=== PATIENT | female | born 1960 | race Caucasian/White ===

== ENCOUNTER 2022-01-27 09:40 | Inpatient (IN) ==
[2022-01-27] MEDS ORDERED: ALBUT/IPRATROP 3MG/0.5MG NEB 3 ML VIAL NEB STA (10:06)
[2022-01-27 10:20] LABS: Basophils # (auto) 0.07 K/uL (0-0.2); Basophils % (auto) 0.6 %; Eosinophils # (auto) 1.69 K/uL (0-0.5); Eosinophils % (auto) 13.6 %; Hematocrit (blood only) 42.6 % (37-47); Hemoglobin 14.8 g/dL (12.0-16.0); Immature Granulocytes # (auto) 0.02 K/uL (0.00-0.02); Immature Granulocytes % (auto) 0.2 %; Lymphocytes # (auto) 4.06 K/uL (1.2-3.4); Lymphocytes % (auto) 32.7 %; Mean Corpuscular Hemoglobin 34.3 pg (25-34); Mean Corpuscular Hgb Conc 34.7 g/dL (32-36); Mean Corpuscular Volume 98.6 fL (80-100); Mean Platelet Volume 8.9 fL (7.4-10.4); Monocytes # (auto) 0.76 K/uL (0.11-0.59); Monocytes % (auto) 6.1 %; Neutrophils # (auto) 5.83 K/uL (1.4-6.5); Neutrophils % (auto) 46.8 %; Platelet Count 197 K/uL (130-400); RDW Coefficient of Variation 12.9 % (11.5-14.5); RDW Standard Deviation 46.6 fL (36.4-46.3); Red Blood Count 4.32 M/uL (4.2-5.4); White Blood Count 12.43 K/uL (4.8-10.8)
[2022-01-27 10:30] LABS: Partial Thromboplastin Time 26.5 Seconds (21.0-31.0); Prothrombin Time 10.5 Seconds (9.0-12.0)
--- NOTE | 2022-01-27 10:31 | XRay Report ---
XR chest 1V portable CLINICAL HISTORY: Dyspnea. COMPARISON STUDY: No previous studies for comparison. TECHNIQUE: 1 view of the chest FINDINGS: Single frontal view of the chest demonstrates the cardiomediastinal silhouette to be within normal li mits. There is a decreased inspiratory effort with elevation of the hemidiaphragms and crowding of th e bronchovascular markings at the lung bases and centrally. The lungs are clear of alveolar opacities . There is no evidence for pleural effusion. There is no evidence for vascular congestion. There is n o acute osseous pathology. The patient is status post internal fixation of the right clavicle. IMPRESSION: 1. . There is a decreased inspiratory effort with otherwise no acute chest disease. ACT 112: Negative or not required by law. Electronically signed by: Gary Gardner M.D. 01/27/2022 10:30 AM
[2022-01-27 11:00] LABS: Albumin Globulin Ratio 1.1 (0.9-2); Albumin Level 3.9 gm/dl (3.4-5.0); BUN Creatinine Ratio 18.9 (10-20); Bilirubin,Total 0.4 mg/dl (0.2-1.0); Calcium 9.6 mg/dl (8.5-10.1); Creatinine Clr Calc Pharmacy 86.2 ml/min; Est GFR (African American) 99.9 ml/min; Est GFR (Non-African American) 86.2 ml/min; Globulin 3.5 gm/dl (2.5-4.0); Potassium 4.1 mmol/L (3.5-5.1); Total Protein 7.4 gm/dl (6.0-8.3)
[2022-01-27 11:14] LABS: Influenza A virus by PCR Negative (Neg); Influenza B virus by PCR Negative (Neg); RSV by PCR Negative (Neg); SARS CoV2 RNA(COVID-19) InHosp NEGATIVE (Negative)
[2022-01-27] MEDS ORDERED: OPTIRAY 320 125ml IV ONE (11:14)
--- NOTE | 2022-01-27 11:24 | CT Scan Report ---
CT angio chest PE protocol CLINICAL HISTORY: Hypoxia . Dyspnea. COMPARISON STUDY: Portable chest from 01/27/2022 CT DOSE: 635.93 mGy.cm TECHNIQUE: CT Angio of the chest was performed.followed by image post processing with coronal, and s agittal MIP reformats. Contrast Volume: Optiray 320, 120 ml FINDINGS: Vasculature: There is homogeneous perfusion of the pulmonary vasculature bilaterally. No intraluminal filling defects or evidence for pulmonary embolus is seen. Airway: The airway is clear. No endobronchial lesion is identified. Lungs: Mild to moderate centrilobular emphysematous changes are present involving both upper lobes, r ight greater than left. There is crowding of the bronchovascular markings at the lung bases. The lung s are otherwise clear of acute alveolar opacities, air bronchograms or pulmonary nodules. Pleura: There is no evidence for pleural effusion. There is no evidence for pneumothorax. Mediastinum: There is no evidence for pathologic adenopathy. The heart size is within normal limits. There is mild coronary artery calcification present. The thoracic aorta is within normal limits. Ther e is no evidence for pericardial effusion. Upper abdomen:The adrenal glands are normal bilaterally. Osseous structures: There is no acute osseous pathology. Impression: 1. No CTA evidence for pulmonary embolus. 2. Mild to moderate centrilobular emphysematous changes of the upper lobes bilaterally, right greater than left. 3. Crowding of the bronchovascular markings at the lung bases with otherwise no acute chest disease. ACT 112: Negative or not required by law. Electronically signed by: Gary Gardner M.D. 01/27/2022 11:21 AM
[2022-01-27] MEDS ORDERED: methylPREDNISolone 125 MG/2 ML VIAL IV STA (11:51)
--- NOTE | 2022-01-27 12:06 | History & Physical Report ---
Date of Service January 27, 2022 Assessment & Plan (1) COPD exacerbation: Plan: - Admit to med tele - Solumedrol 60 mg IV BID - Doxycycline 100 mg BID - DuoNebs ATC and PRN - Mucinex for chest congestion - AM labs - Supplemental oxygen - titrate to a goal pulseox of 88-92% (2) Chronic pain syndrome: (3) Hypertension: (4) Dyslipidemia: (5) Fibromyalgia: (6) Malignant neoplasm of upper-outer quadrant of right breast in female, estrogen receptor negative: Plan: In remission - follows with hem/onc every 3 months (7) Tobacco use: Plan: Nicotine patch (8) Prediabetes: Plan: Last A1c in April 2021 - 6.3 Check A1c with AM labs Plan: Continue other home medications as appropriate Pt seen and reviewed with collaborating physician, Dr. Sam. Plan of care discussed and as outlined above. Code Status: Full Code DVT Prophylaxis: Larissa Suh PA-C History of Present Illness Chief Complaint: Low oxygen level, cough Primary Care Provider: Zheng Don MD This is a 61 y/o female with a PMH of panlobular emphysema, breast cancer s/p partial mastectomy and chemo (currently in remission), prior NE, HTN, dyslipidemia, chronic pain syndrome, fibromyalgia, prediabetics, and current tobacco use who presents to the ED with hypoxia, being referred from her PCP office. She reports ongoing issues with COPD since last fall, having completed two courses of prednisone and doxycycline in late 2020, course of Biaxin in October. Nagging cough since then but increasing cough for the past three days. Associated chest tightness. Wheezing started two days ago. Has been using nebs without relief so made appt with PCP today - found to be hypoxic so referred to the ED for evaluation. Cough mostly non-productive until the past 24 hours - minimally productive of white-yellow mucus since then. No hemoptysis. May cough to the point of having trouble breathing but no FARIAS or SOB otherwise. Associated wheezing for past two days. Chest feels very tight. No fevers, chills. At baseline uses Breo once daily and albuterol twice a day. No RIVERS, dizziness, palpitations, N/V. Chest only hurts with coughing - no pain with deep breathing. No known sick contacts. Does not follow with pulm for COPD. Current smoker (1 PPD) so would like a nicotine patch while admitted. Allergies Allergy/AdvReac Type Severity Reaction Status Date / Time oxycodone Allergy Mild Verified 01/27/22 10:48 baclofen AdvReac Mild Verified 01/27/22 10:48 CODEINE AdvReac Unknown ITCH Uncoded 01/27/22 10:48 Home Medications Medication Instructions Recorded Confirmed Type atorvastatin 20 mg tablet 20 mg PO DAILY 04/29/21 01/27/22 History betamethasone dipropionate 0.05 % 1 applic TOPICAL BID PRN 04/29/21 01/27/22 History topical cream diclofenac sodium 1 % gel topical 4 g TOPICAL QID PRN 04/29/21 01/27/22 History kit fluticasone propionate 50 2 spray INTRANASAL DAILY PRN 04/29/21 01/27/22 History mcg/actuation nasal spray,suspension furosemide 20 mg tablet (Lasix) 20 mg PO DAILY 04/29/21 01/27/22 History gabapentin 400 mg capsule 400 mg PO BID cap 04/29/21 01/27/22 History gabapentin 600 mg tablet 600 mg PO HS tab 04/29/21 01/27/22 History hydroxyzine HCl 25 mg tablet 25 mg PO HS tab 04/29/21 01/27/22 History meloxicam 15 mg tablet 15 mg PO DAILY 04/29/21 01/27/22 History metoprolol tartrate 25 mg tablet 12.5 mg PO BID tab 04/29/21 01/27/22 History morphine 15 mg immediate release 15 mg PO BID PRN 04/29/21 01/27/22 History tablet albuterol sulfate 0.63 mg/3 mL 0.63 mg INHALATION QID PRN 01/27/22 01/27/22 History solution for nebulization albuterol sulfate 90 mcg/actuation 2 puff INHALATION Q4H PRN 01/27/22 01/27/22 History aerosol inhaler aspirin 325 mg tablet 325 mg PO DAILY 01/27/22 01/27/22 History fluticasone furoate 100 1 inh INHALATION DAILY 01/27/22 01/27/22 History mcg-vilanterol 25 mcg/dose inhalation powder (Breo Ellipta) morphine 30 mg tablet,extended 30 mg PO BID 01/27/22 01/27/22 History release multivitamin 1 tab PO DAILY 01/27/22 01/27/22 History vitamin B complex 1 tab PO DAILY 01/27/22 01/27/22 History Past Med/Surg History Medical History Angina pectoris Chronic low back pain Collar bone fracture Dyslipidemia Fibromyalgia History of NE (myocardial infarction) Hypertension Insomnia Nephrolithiasis Neuropathy Panlobular emphysema PFO (patent foramen ovale) Prediabetes Psoriasis Surgical History History of partial mastectomy of right breast with sentinel node bx Family History Mother Cancer Heart disease CHF Father Heart disease Dementia Aunt Cancer Breast Social History Smoking Status: Current every day smoker Tobacco Type: Cigarettes Age Started Using Tobacco: 14; packs per day: 1; Second Hand Exposure: Yes; Do You Dip or Chew Tobacco: No; Tobacco Cessation Education Requested by Patient: No Hx Alcohol Use: No Hx Substance Use: No Preferred Language: Bulgarian Communication Ability: Effective Visual Impairment: No Limitations Hearing Ability: Normal 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 Required: No Beliefs That Will Affect Care: None marital status: Current Living Situation: Spouse current occupational status: disabled Other Information That Helps Us Care for You: No Feels Safe at Home: Yes Safety Concerns: Feels Safe At This Time caffeine: Yes during the past year weight has: remained stable Dental Care, Regularly: No Physical Activity Frequency: Other Physical Activity Frequency Comment: walks around the block dependent on weather Assistive Devices: Denture - Upper Review of Systems Review of Systems: All systems reviewed & are unremarkable except as noted in HPI & below Constitutional: + fatigue; no fever, no chills and no sweats Eyes: no diplopia Ear, Nose, Mouth, Throat: no nasal congestion and no sore throat Respiratory: as per Subjective / HPI; no hemoptysis Cardiovascular: as per Subjective / HPI; no palpitations, no lightheadedness and no syncope Gastrointestinal: no abdominal pain, no nausea, no vomiting, no diarrhea/loose stools and no blood in stools Genitourinary: no dysuria and no hematuria Musculoskeletal: chronic pain syndrome - on Morphine daily Integumentary: no yellowing of the skin Neurologic: no generalized weakness, no dizziness and no headache(s) Physical Exam Constitutional: well developed and well nourished; no acute distress Eyes: + anicteric sclerae Neck: trachea midline Respiratory: no respiratory distress and no labored breathing Auscultation: + wheezes (expiratory throughout); no rales and no rhonchi Cardiovascular: Rate/Rhythm: regular rate and regular rhythm Vessels: post erior tibial pulses present and radial pulses present Extremities: normal capillary refill and + edema (trace LLE) Gastrointestinal (Abdomen): Inspection/Auscultation: normal bowel sounds; abdomen not distended Percussion/Palpation: abdomen soft; abdomen nontender Musculoskeletal: Head/Neck/Chest: normocephalic, head atraumatic and neck supple Skin: no jaundice Neurologic: moves all extremities; no focal motor deficits and not confused Psychiatric: A+Ox3, euthymic affect Results & Data Results & Data ([facility]) Vital Signs (Past 12 Hours) Vital Signs Temp Pulse Pulse Resp BP BP Pulse Ox 01/27/22 11:00 75 18 127/72 91 01/27/22 10:15 93 01/27/22 09:47 36.0 C L 81 18 141/87 H 91 Laboratory Results Laboratory Results - last 24 hr 01/27/22 01/27/22 01/27/22 10:10 10:10 10:10 WBC 12.43 H RBC 4.32 Hgb 14.8 Hct 42.6 MCV 98.6 MCH 34.3 H MCHC 34.7 RDW Std Deviation 46.6 H RDW Coeff of Viral 12.9 Plt Count 197 MPV 8.9 Immature Gran % (Auto) 0.2 Neut % (Auto) 46.8 Lymph % (Auto) 32.7 [place] % (Auto) 6.1 Eos % (Auto) 13.6 Baso % (Auto) 0.6 Neut # (Auto) 5.83 Lymph # (Auto) 4.06 H [place] # (Auto) 0.76 H Eos # (Auto) 1.69 H Baso # (Auto) 0.07 Immature Gran # (Auto) 0.02 PT 10.5 INR 1.0 APTT 26.5 PTT Ratio 1.0 Sodium 139 Potassium 4.1 Chloride 103 Carbon Dioxide 28 Anion Gap 8 BUN 14 Creatinine 0.74 Est Cr Clr Drug Dosing 86.2 Est GFR ( Amer) 99.9 Est GFR (Non-Af Amer) 86.2 BUN/Creatinine Ratio 18.9 Glucose 97 Calcium 9.6 Total Bilirubin 0.4 AST 17 ALT 20 Alkaline Phosphatase 110 H Troponin I Total Protein 7.4 Albumin 3.9 Globulin 3.5 Albumin/Globulin Ratio 1.1 SARS-CoV-2 (PCR) Influenza Type A (PCR) Influenza Type B (PCR) RSV (RT-PCR) 01/27/22 01/27/22 10:10 10:14 WBC RBC Hgb Hct MCV MCH MCHC RDW Std Deviation RDW Coeff of Viral Plt Count MPV Immature Gran % (Auto) Neut % (Auto) Lymph % (Auto) [place] % (Auto) Eos % (Auto) Baso % (Auto) Neut # (Auto) Lymph # (Auto) [place] # (Auto) Eos # (Auto) Baso # (Auto) Immature Gran # (Auto) PT INR APTT PTT Ratio Sodium Potassium Chloride Carbon Dioxide Anion Gap BUN Creatinine Est Cr Clr Drug Dosing Est GFR ( Amer) Est GFR (Non-Af Amer) BUN/Creatinine Ratio Glucose Calcium Total Bilirubin AST ALT Alkaline Phosphatase Troponin I < 0.03 Total Protein Albumin Globulin Albumin/Globulin Ratio SARS-CoV-2 (PCR) NEGATIVE Influenza Type A (PCR) Negative Influenza Type B (PCR) Negative RSV (RT-PCR) Negative Diagnostic Findings Chest X-ray 01/27/22 - IMPRESSION: 1. . There is a decreased inspiratory effort with otherwise no acute chest disease. CTA Chest 01/27/22 - Impression: 1. No CTA evidence for pulmonary embolus. 2. Mild to moderate centrilobular emphysematous changes of the upper lobes bilaterally, right greater than left. 3. Crowding of the bronchovascular markings at the lung bases with otherwise no acute chest disease. Medications Administered Discontinued Medications Albuterol (Albut/Ipratrop 3mg/0.5mg Neb 3 Ml Vial) 3 ml NEB NOW STA; Protocol Stop: 01/27/22 10:07 Last Admin: 01/27/22 10:17 Dose: 3 ml Documented by: [id number] Ioversol (Optiray 320 125ml) 120 ml IV ONCE ONE Stop: 01/27/22 11:15 Last Admin: 01/27/22 11:15 Dose: 120 ml Documented by: [id number] Supervising Physician Co-Signing Physician Notes Patient is a 60-year-old female with history of COPD, ongoing tobacco use, hypertension and other medical problems presents with history of worsening cough, chest tightness, wheezing for the past 3 days duration. Patient was evaluated by PCP today and was found to be hypoxic and so was sent to ED for further evaluation. Patient was found to be 85% on room air and was placed on supplemental oxygen while in ED. Patient admits to having multiple COPD exacerbations in the past. Blood work suggestive of leukocytosis 12.43K, alkaline phosphatase 110, otherwise within normal limits. Covid, intrinsic, RSV screen negative. CTA showed findings suggestive of emphysema. On exam patient is obese, no apparent distress, normocephalic atraumatic, EOMI, decreased breath sounds, bilateral wheezing, scattered rhonchi, S1-S2, no murmur, trace pedal edema, abdomen soft, nontender, normal bowel sounds, alert, awake, oriented, grossly no focal deficits. Patient is admitted for management of acute COPD exacerbation, respiratory failure with hypoxia. Start on bronchodilators, glucocorticoids and doxycycline. Titrate oxygen to keep saturations 88 to 92%. Advised to quit smoking. I personally reviewed the record. Patient is interviewed and examined at bedside. Patient's care is coordinated with Lakesha Suh PA-C. Please refer to the documentation above for details of patient's presentation and for discussion of other issues.
--- NOTE | 2022-01-27 12:11 | Emergency Department Note ---
History of Present Illness General Chief complaint: Respiratory Problems Stated complaint: DR ALBERT, O2 LOW Time Seen by Provider: 01/27/22 09:53 Source: patient Mode of arrival: ambulatory Limitations: no limitations History of Present Illness This patient is a 61 female who presents to the emergency department for evaluation of shortness of breath. Patient reports that she has had a cough intermittently for the past 2 months. She was seen by her PCPs office today and sent here due to a low oxygen level of 83%. She that she has trouble catching her breath when she has coughing fits. She does have a history of breast cancer currently in remission. She reports that she has been told that she has COPD, but has never seen a speech language therapist for this. She denies any fevers/chills. The cough is nonproductive. Home Medications Medication Instructions Recorded Confirmed Type atorvastatin 20 mg tablet 20 mg PO DAILY 04/29/21 01/27/22 History betamethasone dipropionate 0.05 % 1 applic TOPICAL BID PRN 04/29/21 01/27/22 History topical cream diclofenac sodium 1 % gel topical 4 g TOPICAL QID PRN 04/29/21 01/27/22 History kit fluticasone propionate 50 2 spray INTRANASAL DAILY PRN 04/29/21 01/27/22 History mcg/actuation nasal spray,suspension furosemide 20 mg tablet (Lasix) 20 mg PO DAILY 04/29/21 01/27/22 History gabapentin 400 mg capsule 400 mg PO BID cap 04/29/21 01/27/22 History gabapentin 600 mg tablet 600 mg PO HS tab 04/29/21 01/27/22 History hydroxyzine HCl 25 mg tablet 25 mg PO HS tab 04/29/21 01/27/22 History meloxicam 15 mg tablet 15 mg PO DAILY 04/29/21 01/27/22 History metoprolol tartrate 25 mg tablet 12.5 mg PO BID tab 04/29/21 01/27/22 History morphine 15 mg immediate release 15 mg PO BID PRN 04/29/21 01/27/22 History tablet albuterol sulfate 0.63 mg/3 mL 0.63 mg INHALATION QID PRN 01/27/22 01/27/22 History solution for nebulization albuterol sulfate 90 mcg/actuation 2 puff INHALATION Q4H PRN 01/27/22 01/27/22 History aerosol inhaler aspirin 325 mg tablet 325 mg PO DAILY 01/27/22 01/27/22 History fluticasone furoate 100 1 inh INHALATION DAILY 01/27/22 01/27/22 History mcg-vilanterol 25 mcg/dose inhalation powder (Breo Ellipta) morphine 30 mg tablet,extended 30 mg PO BID 01/27/22 01/27/22 History release multivitamin 1 tab PO DAILY 01/27/22 01/27/22 History vitamin B complex 1 tab PO DAILY 01/27/22 01/27/22 History Allergies Allergy/AdvReac Type Severity Reaction Status Date / Time oxycodone Allergy Mild Verified 01/27/22 10:48 baclofen AdvReac Mild Verified 01/27/22 10:48 CODEINE AdvReac Unknown ITCH Uncoded 01/27/22 10:48 Past Med/Surg History Medical History Angina pectoris Chronic low back pain Collar bone fracture Dyslipidemia Fibromyalgia History of MS (myocardial infarction) Hypertension Insomnia Nephrolithiasis Neuropathy Panlobular emphysema PFO (patent foramen ovale) Prediabetes Psoriasis Surgical History History of partial mastectomy of right breast with sentinel node bx Family History Mother Cancer Heart disease CHF Father Heart disease Dementia Aunt Cancer Breast Social History Smoking Status: Current every day smoker Tobacco Type: Cigarettes Age Started Using Tobacco: 14; packs per day: 1; Second Hand Exposure: Yes; Do You Dip or Chew Tobacco: No; Tobacco Cessation Education Requested by Patient: No Hx Alcohol Use: No Hx Substance Use: No Preferred Language: [place] Communication Ability: Effective Visual Impairment: No Limitations Hearing Ability: Normal Used Car Manager Required: No Beliefs That Will Affect Care: None marital status: Current Living Situation: Spouse current occupational status: disabled Other Information That Helps Us Care for You: No Feels Safe at Home: Yes Safety Concerns: Feels Safe At This Time caffeine: Yes during the past year weight has: remained stable Dental Care, Regularly: No Physical Activity Frequency: Other Physical Activity Frequency Comment: walks around the block dependent on weather Assistive Devices: Denture - Upper Review of Systems A total of 10 systems reviewed and were otherwise negative Physical Exam Vital Signs Vital Signs - 24 hr 01/27/22 09:47 01/27/22 10:13 01/27/22 10:15 Temperature 36.0 C L Temperature Source Temporal Artery Scan Pulse Rate 81 Pulse Rate [Apical] Respiratory Rate 18 Respiratory Effort / Characteristics Spontaneous Respiratory Pattern Regular Blood Pressure 141/87 H Blood Pressure [Left Arm] Blood Pressure Mean 105 Blood Pressure Mean [Left Arm] Pulse Oximetry 91 93 Oxygen Delivery Method Room Air Room Air Nasal Cannula Oxygen Flow Rate 2 Sepsis Recent Fever Within 48 Hours No Sepsis New/Unexplained Change in Mental Status No Sepsis Action Taken by Nursing No Action Required Oxygen Flow Rate - Titration Pulse Oximetry Post Tiitration 01/27/22 10:19 01/27/22 11:00 Temperature Temperature Source Pulse Rate Pulse Rate [Apical] 75 Respiratory Rate 18 Respiratory Effort / Characteristics Respiratory Pattern Blood Pressure Blood Pressure [Left Arm] 127/72 Blood Pressure Mean Blood Pressure Mean [Left Arm] 90 Pulse Oximetry 91 Oxygen Delivery Method Room Air Nasal Cannula Oxygen Flow Rate 3 Sepsis Recent Fever Within 48 Hours Sepsis New/Unexplained Change in Mental Status Sepsis Action Taken by Nursing Oxygen Flow Rate - Titration 3 Pulse Oximetry Post Tiitration 91 VITALS: Vitals are noted on the nurse's note and reviewed by myself. Vital signs stable. GENERAL: This is a 61-year-old female, in no acute distress, well-developed well-nourished. SKIN: The skin was without rashes. EARS: External auditory canals clear, tympanic membranes pearly gleason without erythema or effusion bilaterally. EYES: Pupils equal round and reactive to light and accommodation. NOSE: Patent, turbinates without inflammation or discharge. MOUTH: Mucous membranes moist. Tonsils are not enlarged. Pharynx without erythema or exudate. NECK: Supple without nuchal rigidity. No lymphadenopathy. HEART: Regular rate and rhythm without murmurs gallops or rubs. LUNGS: Expiratory wheezes bilateral upper lungs. Decreased breath sounds in the lower lungs. EXTREMITIES: No pitting edema of the lower extremities. NEURO: Patient was alert and oriented to person place and time. Course Administered Medications Doxycycline Hyclate (Doxycycline Hyclate 100 Mg Cap) 100 mg PO BID [place] Stop: 02/03/22 14:44 Last Admin: 01/27/22 15:05 Dose: 100 mg Documented by: [id number] Guaifenesin/Dextromethorphan (Guaifenesin/Dextrom Syrup 100mg/10mg 5ml Udc) 5 ml PO Q6H PRN PRN Reason: Cough Stop: 02/26/22 14:36 Last Admin: 01/27/22 15:07 Dose: 5 ml Documented by: [id number] Nicotine (Nicotine 21 Mg/24 Hr Tdsy) 21 mg TD QAM [place] Stop: 02/26/22 14:44 Last Admin: 01/27/22 15:05 Dose: 21 mg Documented by: [id number] Discontinued Medications Albuterol (Albut/Ipratrop 3mg/0.5mg Neb 3 Ml Vial) 3 ml NEB NOW STA; Protocol Stop: 01/27/22 10:07 Last Admin: 01/27/22 10:17 Dose: 3 ml Documented by: [id number] Ioversol (Optiray 320 125ml) 120 ml IV ONCE ONE Stop: 01/27/22 11:15 Last Admin: 01/27/22 11:15 Dose: 120 ml Documented by: [id number] Methylprednisolone (Methylprednisolone 125 Mg/2 Ml Vial) 125 mg IV NOW STA Stop: 01/27/22 11:52 Last Admin: 01/27/22 12:43 Dose: 125 mg Documented by: [id number] Medical Decision Making Differential Diagnosis Reactive airway disease, pneumonia, pneumothorax, COPD, CHF, infections, cardiac ischemia, pulmonary embolism, musculoskeletal, gastrointestinal, as well as other pathologies. Home Medications Current Medication List: was personally reviewed by me Laboratory Data Attestation: I reviewed the patient's lab results. Result diagrams: 01/27/22 10:10 01/27/22 10:10 Lab Results 01/27/22 01/27/22 01/27/22 Range/Units 10:10 10:10 10:10 WBC 12.43 H (4.8-10.8) K/uL RBC 4.32 (4.2-5.4) M/uL Hgb 14.8 (12.0-16.0) g/dL Hct 42.6 (37-47) % MCV 98.6 (80-100) fL MCH 34.3 H (25-34) pg MCHC 34.7 (32-36) g/dL RDW Std Deviation 46.6 H (36.4-46.3) fL RDW Coeff of Viral 12.9 (11.5-14.5) % Plt Count 197 (130-400) K/uL MPV 8.9 (7.4-10.4) fL Immature Gran % (Auto) 0.2 % Neut % (Auto) 46.8 % Lymph % (Auto) 32.7 % Terrell % (Auto) 6.1 % Eos % (Auto) 13.6 % Baso % (Auto) 0.6 % Neut # (Auto) 5.83 (1.4-6.5) K/uL Lymph # (Auto) 4.06 H (1.2-3.4) K/uL Terrell # (Auto) 0.76 H (0.11-0.59) K/uL Eos # (Auto) 1.69 H (0-0.5) K/uL Baso # (Auto) 0.07 (0-0.2) K/uL Immature Gran # (Auto) 0.02 (0.00-0.02) K/uL PT 10.5 (9.0-12.0) Seconds INR 1.0 (0.9-1.1) APTT 26.5 (21.0-31.0) Seconds PTT Ratio 1.0 Sodium 139 (136-145) mmol/L Potassium 4.1 (3.5-5.1) mmol/L Chloride 103 (98-107) mmol/L Carbon Dioxide 28 (21-32) mmol/L Anion Gap 8 (3-11) BUN 14 (6-23) mg/dl Creatinine 0.74 (0.6-1.2) mg/dl Est Cr Clr Drug Dosing 86.2 ml/min Est GFR ( Amer) 99.9 ml/min Est GFR (Non-Af Amer) 86.2 ml/min BUN/Creatinine Ratio 18.9 (10-20) Glucose 97 (70-99(Fasting)) mg/dl Calcium 9.6 (8.5-10.1) mg/dl Total Bilirubin 0.4 (0.2-1.0) mg/dl AST 17 (13-39) U/L ALT 20 (7-52) U/L Alkaline Phosphatase 110 H (34-104) U/L Troponin I (0-0.04) ng/ml Total Protein 7.4 (6.0-8.3) gm/dl Albumin 3.9 (3.4-5.0) gm/dl Globulin 3.5 (2.5-4.0) gm/dl Albumin/Globulin Ratio 1.1 (0.9-2) SARS-CoV-2 (PCR) (Negative) Influenza Type A (PCR) (Neg) Influenza Type B (PCR) (Neg) RSV (RT-PCR) (Neg) 01/27/22 01/27/22 Range/Units 10:10 10:14 WBC (4.8-10.8) K/uL RBC (4.2-5.4) M/uL Hgb (12.0-16.0) g/dL Hct (37-47) % MCV (80-100) fL MCH (25-34) pg MCHC (32-36) g/dL RDW Std Deviation (36.4-46.3) fL RDW Coeff of Viral (11.5-14.5) % Plt Count (130-400) K/uL MPV (7.4-10.4) fL Immature Gran % (Auto) % Neut % (Auto) % Lymph % (Auto) % Terrell % (Auto) % Eos % (Auto) % Baso % (Auto) % Neut # (Auto) (1.4-6.5) K/uL Lymph # (Auto) (1.2-3.4) K/uL Terrell # (Auto) (0.11-0.59) K/uL Eos # (Auto) (0-0.5) K/uL Baso # (Auto) (0-0.2) K/uL Immature Gran # (Auto) (0.00-0.02) K/uL PT (9.0-12.0) Seconds INR (0.9-1.1) APTT (21.0-31.0) Seconds PTT Ratio Sodium (136-145) mmol/L Potassium (3.5-5.1) mmol/L Chloride (98-107) mmol/L Carbon Dioxide (21-32) mmol/L Anion Gap (3-11) BUN (6-23) mg/dl Creatinine (0.6-1.2) mg/dl Est Cr Clr Drug Dosing ml/min Est GFR ( Amer) ml/min Est GFR (Non-Af Amer) ml/min BUN/Creatinine Ratio (10-20) Glucose (70-99(Fasting)) mg/dl Calcium (8.5-10.1) mg/dl Total Bilirubin (0.2-1.0) mg/dl AST (13-39) U/L ALT (7-52) U/L Alkaline Phosphatase (34-104) U/L Troponin I < 0.03 (0-0.04) ng/ml Total Protein (6.0-8.3) gm/dl Albumin (3.4-5.0) gm/dl Globulin (2.5-4.0) gm/dl Albumin/Globulin Ratio (0.9-2) SARS-CoV-2 (PCR) NEGATIVE (Negative) Influenza Type A (PCR) Negative (Neg) Influenza Type B (PCR) Negative (Neg) RSV (RT-PCR) Negative (Neg) Imaging Data Attestation: I personally reviewed and interpreted this imaging study as follows: Radiologist's Impression: Chest X-Ray 01/27/22 10:02 XR chest 1V portable CLINICAL HISTORY: Dyspnea. COMPARISON STUDY: No previous studies for comparison. TECHNIQUE: 1 view of the chest FINDINGS: Single frontal view of the chest demonstrates the cardiomediastinal silhouette to be within normal limits. There is a decreased inspiratory effort with elevation of the hemidiaphragms and crowding of the bronchovascular markings at the lung bases and centrally. The lungs are clear of alveolar opacities. There is no evidence for pleural effusion. There is no evidence for vascular congestion. There is no acute osseous pathology. The patient is status post internal fixation of the right clavicle. IMPRESSION: 1. . There is a decreased inspiratory effort with otherwise no acute chest disease. ACT 112: Negative or not required by law. Electronically signed by: Gary Gardner M.D. 01/27/2022 10:30 AM Chest CTA 01/27/22 10:03 CT angio chest PE protocol CLINICAL HISTORY: Hypoxia . Dyspnea. COMPARISON STUDY: Portable chest from 01/27/2022 CT DOSE: 635.93 mGy.cm TECHNIQUE: CT Angio of the chest was performed.followed by image post p rocessing with coronal, and sagittal MIP reformats. Contrast Volume: Optiray 320, 120 ml FINDINGS: Vasculature: There is homogeneous perfusion of the pulmonary vasculature bilaterally. No intraluminal filling defects or evidence for pulmonary embolus is seen. Airway: The airway is clear. No endobronchial lesion is identified. Lungs: Mild to moderate centrilobular emphysematous changes are present involving both upper lobes, right greater than left. There is crowding of the bronchovascular markings at the lung bases. The lungs are otherwise clear of acute alveolar opacities, air bronchograms or pulmonary nodules. Pleura: There is no evidence for pleural effusion. There is no evidence for pneumothorax. Mediastinum: There is no evidence for pathologic adenopathy. The heart size is within normal limits. There is mild coronary artery calcification present. The thoracic aorta is within normal limits. There is no evidence for pericardial effusion. Upper abdomen:The adrenal glands are normal bilaterally. Osseous structures: There is no acute osseous pathology. Impression: 1. No CTA evidence for pulmonary embolus. 2. Mild to moderate centrilobular emphysematous changes of the upper lobes bilaterally, right greater than left. 3. Crowding of the bronchovascular markings at the lung bases with otherwise no acute chest disease. ACT 112: Negative or not required by law. Electronically signed by: Gary Gardner M.D. 01/27/2022 11:21 AM MDM Narrative Continuous satellite project site monitor: Order was placed for continuous satellite project site monitor. Patient was placed on the satellite project site monitor. Patient was noted to be in normal sinus rhythm at an initial rate of 81 bpm. The patient is a 61-year-old female who presents today complaining of persistent cough. Patient found to be hypoxic on initial evaluation, with O2 sats in the mid 80s. She was placed on oxygen via nasal cannula. Due to patient's history of malignancy, CT angiogram of the chest was performed which showed no evidence of PE or mass. No pneumonia was found. Patient presents consistent with a COPD exacerbation and was treated for this with DuoNeb and IV steroids. Due to patient's oxygen requirements, I did recommend inpatient stay and patient was agreeable with this. [facility] the patient for further care. Impression & Plan COPD exacerbation, Hypoxia Discharge Plan Visit Data Chief Complaint: Respiratory Problems Stated Complaint: DR REFERRED, O2 LOW ED Provider: Gerson Teran ED Midlevel Provider: Ashli Alcocer Discharge Problem: COPD exacerbation, Hypoxia Patient Disposition: Admitted As Inpatient Discharge Instructions Interventions: ED Discharge Assessment Last Done: 01/27/22 14:03
[2022-01-27] MEDS ORDERED: ACETAMINOPHEN 325 MG TAB PO PRN (14:21)
[2022-01-27] MEDS ORDERED: MoRPHine SULFATE IR 15 MG TAB (IMMEDIATE RELEASE) PO PRN (14:21)
[2022-01-27] MEDS ORDERED: guaiFENesin/DEXTROM SYRUP 100MG/10MG 5ML UDC PO PRN (14:37)
[2022-01-27] MEDS: NICOTINE 21 MG/24 HR TDSY TD SCH (15:05)
[2022-01-27] MEDS: DOXYCYCLINE HYCLATE 100 MG CAP PO SCH ×2 (15:05→20:45)
[2022-01-27] MEDS: GABAPENTIN 400 MG CAP PO SCH (15:17)
[2022-01-27] MEDS: ALBUT/IPRATROP 3MG/0.5MG NEB 3 ML VIAL NEB SCH ×2 (15:29→19:27)
[2022-01-27] MEDS: GABAPENTIN 600 MG TAB PO SCH (20:46)
[2022-01-27] MEDS: guaiFENesin 600 MG TABCR PO SCH (20:46)
[2022-01-27] MEDS: hydrOXYzine HCl 25 MG TAB PO SCH (20:46)
[2022-01-27] MEDS: METOPROLOL TARTRATE 25 MG TAB PO SCH (20:48)
[2022-01-27] MEDS: methylPREDNISolone 60 MG in SYRINGE 0 ML IV SCH (20:48)
[2022-01-27] MEDS: MoRPHine SULFATE CR 15 MG TABCR PO SCH (20:57)
--- NOTE | 2022-01-27 22:10 | Electrocardiogram Report ---
Test Reason : Blood Pressure : / mmHG Vent. Rate : 075 BPM Atrial Rate : 075 BPM P-R Int : 174 ms QRS Dur : 090 ms QT Int : 390 ms P-R-T Axes : 040 -37 028 degrees QTc Int : 435 ms Normal sinus rhythm Left axis deviation Nonspecific T wave abnormality Abnormal ECG No previous ECGs available Confirmed by Mark Mijares ([id number]) on 01/27/2022 10:10:27 PM Referred By: REFERRED SELF Confirmed By:Mark Mijares
[2022-01-28] MEDS: ALBUT/IPRATROP 3MG/0.5MG NEB 3 ML VIAL NEB SCH ×4 (07:39→19:08)
[2022-01-28 08:38] LABS: Basophils # (auto) 0.01 K/uL (0-0.2); Basophils % (auto) 0.1 %; Eosinophils # (auto) 0.02 K/uL (0-0.5); Eosinophils % (auto) 0.2 %; Hematocrit (blood only) 44.2 % (37-47); Immature Granulocytes # (auto) 0.04 K/uL (0.00-0.02); Immature Granulocytes % (auto) 0.4 %; Lymphocytes # (auto) 2.24 K/uL (1.2-3.4); Lymphocytes % (auto) 20.4 %; Mean Corpuscular Hemoglobin 33.6 pg (25-34); Mean Corpuscular Hgb Conc 33.9 g/dL (32-36); Mean Corpuscular Volume 99.1 fL (80-100); Mean Platelet Volume 9.6 fL (7.4-10.4); Monocytes # (auto) 0.56 K/uL (0.11-0.59); Monocytes % (auto) 5.1 %; Neutrophils % (auto) 73.8 %; Platelet Count 195 K/uL (130-400); RDW Coefficient of Variation 12.7 % (11.5-14.5); RDW Standard Deviation 46.2 fL (36.4-46.3); Red Blood Count 4.46 M/uL (4.2-5.4); White Blood Count 10.97 K/uL (4.8-10.8)
[2022-01-28 08:56] LABS: BUN Creatinine Ratio 27.6 (10-20); Calcium 9.5 mg/dl (8.5-10.1); Creatinine Clr Calc Pharmacy 109.9 ml/min; Est GFR (African American) 113.7 ml/min; Est GFR (Non-African American) 98.1 ml/min; Potassium 3.5 mmol/L (3.5-5.1)
[2022-01-28] MEDS: DEXTROMETHORPHAN POLYMR COMPLX 30 MG/5 ML UDP PO PRN (09:13)
[2022-01-28] MEDS: MULTIVITAMIN TAB PO SCH (09:14)
[2022-01-28] MEDS: METOPROLOL TARTRATE 25 MG TAB PO SCH ×2 (09:14→20:06)
[2022-01-28] MEDS: methylPREDNISolone 60 MG in SYRINGE 0 ML IV SCH ×2 (09:14→20:05)
[2022-01-28] MEDS: VITAMIN B COMPLEX TAB PO SCH (09:14)
[2022-01-28] MEDS: DOXYCYCLINE HYCLATE 100 MG CAP PO SCH ×2 (09:15→20:04)
[2022-01-28] MEDS: NICOTINE 21 MG/24 HR TDSY TD SCH (09:15)
[2022-01-28] MEDS: guaiFENesin 600 MG TABCR PO SCH ×2 (09:15→20:05)
[2022-01-28] MEDS: ASPIRIN 325 MG ECTAB PO SCH (09:15)
[2022-01-28] MEDS: MELOXICAM 7.5 MG TAB PO SCH (09:15)
[2022-01-28] MEDS: GABAPENTIN 400 MG CAP PO SCH ×2 (09:15→15:46)
[2022-01-28] MEDS: FUROSEMIDE 20 MG TAB PO SCH (09:15)
[2022-01-28] MEDS: ATORVASTATIN 20 MG TAB PO SCH (09:15)
[2022-01-28] MEDS: FLUTICASONE/VILANTEROL 100/25MCG 14 PUFFS/INHALER INH SCH (09:16)
[2022-01-28] MEDS: ENOXAPARIN INJ 40 MG/0.4 ML SYR SQ SCH (09:16)
[2022-01-28] MEDS: MoRPHine SULFATE CR 15 MG TABCR PO SCH ×2 (09:25→20:06)
[2022-01-28 10:00] LABS: Estimated Average Glucose 134 mg/dl; Hemoglobin A1C 6.3 % (4.5-5.6)
--- NOTE | 2022-01-28 16:32 | Hospitalist Progress Note ---
Date of Service January 28, 2022 Assessment & Plan (1) COPD exacerbation: Plan: -Solumedrol 60 mg IV BID - Doxycycline 100 mg BID - DuoNebs ATC and PRN - Mucinex for chest congestion -Clinically much better today without any wheezing and/or more shortness of breath at rest -We will continue current management -Possible 2 step and discharge tomorrow (2) Chronic pain syndrome: Plan: Denies any significant pain (3) Hypertension: Plan: Controlled (4) Dyslipidemia: Plan: Continue statin (5) Fibromyalgia: Plan: Does not have any significant syndrome (6) Malignant neoplasm of upper-outer quadrant of right breast in female, estrogen receptor negative: Plan: In remission - follows with hem/onc every 3 months (7) Tobacco use: Plan: Nicotine patch Strongly advised to quit smoking (8) Prediabetes: Plan: Last A1c in April 2021 - 6.3 Check A1c with AM labs-6.3 Plan: Code Status: Full Code DVT Prophylaxis: Lovenox Admission and Anticipated Discharge Date Admission Date: January 27, 2022 Subjective 01/28/2022 The patient was seen and examined in medical telemetry unit She was admitted with the known exacerbation of COPD secondary to acute bronchitis She has been feeling much better since admission Denies any chest pain, palpitation, denies any abdominal pain nausea and or vomiting Review of Systems Review of Systems: All systems reviewed and are unremarkable except as noted below Physical Exam Physical Exam: Sitting at the edge of the bed with minimal shortness of breath at rest Constitutional: well developed, well nourished, + ill appearing and + obese Eyes: PERRL, conjunctivae normal, anicteric sclerae ENMT: external ear and nose normal, oropharynx normal Neck: trachea midline, no thyromegaly Respiratory: + respiratory distress (Minimal distress at rest) Auscultation: + diminished lung sounds; no crackles and no wheezes Cardiovascular: Rate/Rhythm: regular rate and regular rhythm; not tachycardic Heart Sounds: normal S1 and normal S2; no murmur Extremities: + edema (Trace edema bilaterally) Gastrointestinal (Abdomen): Inspection/Auscultation: normal bowel sounds; abdomen not distended Percussion/Palpation: abdomen soft; abdomen nontender Musculoskeletal: No acute arthritis in any joint Neurologic: Alert, awake and oriented x3. No focal sensory and motor deficit appreciated Results & Data Results & Data ([facility]) Vital Signs (Past 12 Hours) Vital Signs Temp Pulse Pulse Pulse Resp BP Pulse Ox 01/28/22 15:24 87 17 94 01/28/22 14:47 36.8 C 89 18 148/81 H 92 01/28/22 11:25 37.0 C 83 19 128/76 94 01/28/22 11:14 85 18 95 01/28/22 08:18 36.8 C 93 H 18 121/74 94 01/28/22 08:00 84 01/28/22 07:39 21 86 L Laboratory Results Short CBC 01/28/22 Range/Units 08:04 WBC 10.97 H (4.8-10.8) K/uL Hgb 15.0 (12.0-16.0) g/dL Hct 44.2 (37-47) % Plt Count 195 (130-400) K/uL BMP 01/28/22 08:04 Sodium 139 Potassium 3.5 Chloride 104 Carbon Dioxide 24 BUN 16 Creatinine 0.58 L Glucose 195 H Calcium 9.5 Medications Administered Current Inpatient Medications Acetaminophen (Acetaminophen 325 Mg Tab) 650 mg PO Q4H PRN PRN Reason: Pain or Fever Stop: 02/26/22 14:20 Last Admin: 01/27/22 18:09 Dose: 650 mg Documented by: Albuterol (Albut/Ipratrop 3mg/0.5mg Neb 3 Ml Vial) 3 ml NEB QIDR [facility]; Protocol Stop: 02/26/22 14:59 Last Admin: 01/28/22 15:24 Dose: 3 ml Documented by: Aspirin (Aspirin 325 Mg Ectab) 325 mg PO DAILY [facility] Stop: 02/27/22 08:59 Last Admin: 01/28/22 09:15 Dose: 325 mg Documented by: Atorvastatin Calcium (Atorvastatin 20 Mg Tab) 20 mg PO DAILY [facility] Stop: 02/27/22 08:59 Last Admin: 01/28/22 09:15 Dose: 20 mg Documented by: Dextromethorphan Polymer Complex (Dextromethorphan Polymr Complx 30 Mg/5 Ml Udp) 30 mg PO Q6H PRN PRN Reason: Cough Stop: 02/26/22 20:21 Last Admin: 01/28/22 09:13 Dose: 30 mg Documented by: Doxycycline Hyclate (Doxycycline Hyclate 100 Mg Cap) 100 mg PO BID [facility] Stop: 02/03/22 14:44 Last Admin: 01/28/22 09:15 Dose: 100 mg Documented by: Enoxaparin Sodium (Enoxaparin Inj 40 Mg/0.4 Ml Syr) 40 mg SQ QAM [place] Stop: 02/27/22 08:59 Last Admin: 01/28/22 09:16 Dose: 40 mg Documented by: Fluticasone/Vilanterol (Fluticasone/Vilanterol 100/25mcg 14 Puffs/Inhaler) 1 puffs INH DAILY [place] Stop: 02/27/22 08:59 Last Admin: 01/28/22 09:16 Dose: 1 puffs Documented by: Furosemide (Furosemide 20 Mg Tab) 20 mg PO DAILY [place] Stop: 02/27/22 08:59 Last Admin: 01/28/22 09:15 Dose: 20 mg Documented by: Gabapentin (Gabapentin 600 Mg Tab) 600 mg PO HS [place] Stop: 02/26/22 20:59 Last Admin: 01/27/22 20:46 Dose: 600 mg Documented by: Gabapentin (Gabapentin 400 Mg Cap) 400 mg PO BID@0900,1500 [place] Stop: 02/26/22 14:59 Last Admin: 01/28/22 15:46 Dose: 400 mg Documented by: Guaifenesin (Guaifenesin 600 Mg Tabcr) 600 mg PO Q12 [place] Stop: 02/26/22 20:59 Last Admin: 01/28/22 09:15 Dose: 600 mg Documented by: Hydroxyzine HCl (Hydroxyzine Hcl 25 Mg Tab) 25 mg PO HS [place] Stop: 02/26/22 20:59 Last Admin: 01/27/22 20:46 Dose: 25 mg Documented by: Methylprednisolone 60 mg/ (Syringe) 0.96 mls @ 1.5 mls/min IV BID [place] Stop: 02/26/22 20:59 Last Admin: 01/28/22 09:14 Dose: 1.5 mls/min Documented by: Meloxicam (Meloxicam 7.5 Mg Tab) 15 mg PO DAILY [place] Stop: 02/27/22 08:59 Last Admin: 01/28/22 09:15 Dose: 15 mg Documented by: Metoprolol Tartrate (Metoprolol Tartrate 25 Mg Tab) 12.5 mg PO BID [place] Stop: 02/26/22 20:59 Last Admin: 01/28/22 09:14 Dose: 12.5 mg Documented by: Miscellaneous (Remove Nicoderm Patch) 1 ea N/A DAILY@0859 [facility] Stop: 02/27/22 08:58 Last Admin: 01/28/22 09:16 Dose: 1 ea Documented by: Morphine Sulfate (Morphine Sulfate Ir 15 Mg Tab (Immediate Release)) 15 mg PO BID PRN PRN Reason: Pain Stop: 02/10/22 14:20 Morphine Sulfate (Morphine Sulfate Cr 15 Mg Tabcr) 30 mg PO BID [facility] Stop: 02/10/22 20:59 Last Admin: 01/28/22 09:25 Dose: 30 mg Documented by: Multivitamins (Multivitamin Tab) 1 tab PO DAILY [place] Stop: 02/27/22 08:59 Last Admin: 01/28/22 09:14 Dose: 1 tab Documented by: Nicotine (Nicotine 21 Mg/24 Hr Tdsy) 21 mg TD QAM [place] Stop: 02/26/22 14:44 Last Admin: 01/28/22 09:15 Dose: 21 mg Documented by: Vitamin B Complex (Vitamin B Complex Tab) 1 tab PO DAILY [facility] Stop: 02/27/22 08:59 Last Admin: 01/28/22 09:14 Dose: 1 tab Documented by:
[2022-01-28] MEDS: GABAPENTIN 600 MG TAB PO SCH (20:04)
[2022-01-28] MEDS: hydrOXYzine HCl 25 MG TAB PO SCH (20:05)
[2022-01-29 05:52] LABS: Eosinophils # (auto) 0.01 K/uL (0-0.5); Eosinophils % (auto) 0.1 %; Hematocrit (blood only) 40.3 % (37-47); Hemoglobin 13.8 g/dL (12.0-16.0); Immature Granulocytes # (auto) 0.04 K/uL (0.00-0.02); Immature Granulocytes % (auto) 0.3 %; Lymphocytes # (auto) 2.05 K/uL (1.2-3.4); Lymphocytes % (auto) 14.3 %; Mean Corpuscular Hemoglobin 33.9 pg (25-34); Mean Corpuscular Hgb Conc 34.2 g/dL (32-36); Mean Platelet Volume 9.3 fL (7.4-10.4); Monocytes # (auto) 0.72 K/uL (0.11-0.59); Neutrophils # (auto) 11.49 K/uL (1.4-6.5); Neutrophils % (auto) 80.3 %; Platelet Count 201 K/uL (130-400); RDW Standard Deviation 46.9 fL (36.4-46.3); Red Blood Count 4.07 M/uL (4.2-5.4); White Blood Count 14.31 K/uL (4.8-10.8)
[2022-01-29 06:09] LABS: BUN Creatinine Ratio 35.1 (10-20); Calcium 9.3 mg/dl (8.5-10.1); Creatinine Clr Calc Pharmacy 111.6 ml/min; Est GFR (African American) 114.3 ml/min; Est GFR (Non-African American) 98.7 ml/min; Potassium 4.3 mmol/L (3.5-5.1)
[2022-01-29] MEDS: DEXTROMETHORPHAN POLYMR COMPLX 30 MG/5 ML UDP PO PRN (06:36)
[2022-01-29] MEDS: ALBUT/IPRATROP 3MG/0.5MG NEB 3 ML VIAL NEB SCH ×2 (07:03→11:17)
[2022-01-29] MEDS ORDERED: COUGH DROP (SUGAR FREE) LOZ 24 LOZ/1 BOX BUCCAL ONE (07:47)
[2022-01-29] MEDS ORDERED: COUGH DROP (SUGAR FREE) LOZ 24 LOZ/1 BOX BUCCAL PRN (07:48)
[2022-01-29] MEDS: NICOTINE 21 MG/24 HR TDSY TD SCH (08:02)
[2022-01-29] MEDS: ENOXAPARIN INJ 40 MG/0.4 ML SYR SQ SCH (08:02)
[2022-01-29] MEDS: FLUTICASONE/VILANTEROL 100/25MCG 14 PUFFS/INHALER INH SCH (08:02)
[2022-01-29] MEDS: MULTIVITAMIN TAB PO SCH (08:03)
[2022-01-29] MEDS: DOXYCYCLINE HYCLATE 100 MG CAP PO SCH (08:03)
[2022-01-29] MEDS: METOPROLOL TARTRATE 25 MG TAB PO SCH (08:03)
[2022-01-29] MEDS: methylPREDNISolone 60 MG in SYRINGE 0 ML IV SCH (08:03)
[2022-01-29] MEDS: FUROSEMIDE 20 MG TAB PO SCH (08:03)
[2022-01-29] MEDS: guaiFENesin 600 MG TABCR PO SCH (08:03)
[2022-01-29] MEDS: ASPIRIN 325 MG ECTAB PO SCH (08:03)
[2022-01-29] MEDS: GABAPENTIN 400 MG CAP PO SCH (08:03)
[2022-01-29] MEDS: VITAMIN B COMPLEX TAB PO SCH (08:03)
[2022-01-29] MEDS: ATORVASTATIN 20 MG TAB PO SCH (08:03)
[2022-01-29] MEDS: MELOXICAM 7.5 MG TAB PO SCH (08:03)
[2022-01-29] MEDS: MoRPHine SULFATE CR 15 MG TABCR PO SCH (08:05)
[2022-01-29 11:18] VITALS: O2SAT 95
[2022-01-29 11:22] VITALS: BP 130/72; PULSE 62; TEMP 98.1
--- NOTE | 2022-01-29 12:42 | Hospitalist Progress Note ---
Date of Service January 29, 2022 Assessment & Plan (1) COPD exacerbation: Plan: -Solumedrol 60 mg IV BID - Doxycycline 100 mg BID - DuoNebs ATC and PRN - Mucinex for chest congestion -Clinically much better today without any wheezing and/or more shortness of breath at rest -We will continue current management -Possible 2 step and discharge tomorrow -Clinically much better today -Has had 2 steps O2 saturation test done and she will require 2 L of oxygen with ambulation -She will be discharged home this afternoon (2) Chronic pain syndrome: Plan: Denies any significant pain Continue outpatient pain medications (3) Hypertension: Plan: Controlled (4) Dyslipidemia: Plan: Continue statin (5) Fibromyalgia: Plan: Does not have any significant syndrome (6) Malignant neoplasm of upper-outer quadrant of right breast in female, estrogen receptor negative: Plan: In remission - follows with hem/onc every 3 months (7) Tobacco use: Plan: Nicotine patch Strongly advised to quit smoking (8) Prediabetes: Plan: Last A1c in April 2021 - 6.3 Check A1c with AM labs-6.3 Plan: Code Status: Full Code DVT Prophylaxis: Lovenox Will be discharged home this afternoon Admission and Anticipated Discharge Date Admission Date: January 27, 2022 Subjective 01/28/2022 The patient was seen and examined in medical telemetry unit She was admitted with the known exacerbation of COPD secondary to acute bronchitis She has been feeling much better since admission Denies any chest pain, palpitation, denies any abdominal pain nausea and or vomiting 01/29/2022 The patient was seen and examined in medical telemetry unit She has been feeling better and wants to go home today Has minimal cough with whitish phlegm without any wheezing and/or shortness of breath at rest Has had 2 steps O2 saturation and she will be requiring 2 L of oxygen with ambulation Review of Systems Review of Systems: All systems reviewed and are unremarkable except as noted below Constitutional: + fatigue; no fever, no chills and no sweats Eyes: no diplopia Ear, Nose, Mouth, Throat: no nasal congestion and no sore throat Respiratory: as per Subjective / HPI; no hemoptysis Cardiovascular: as per Subjective / HPI; no palpitations, no lightheadedness and no syncope Gastrointestinal: no abdominal pain, no nausea, no vomiting, no diarrhea/loose stools and no blood in stools Genitourinary: no dysuria and no hematuria Musculoskeletal: chronic pain syndrome - on Morphine daily Integumentary: no yellowing of the skin Neurologic: no generalized weakness, no dizziness and no headache(s) Physical Exam Physical Exam: Sitting at the edge of the bed with minimal shortness of breath at rest Constitutional: well developed, well nourished, + ill appearing and + obese Eyes: PERRL, conjunctivae normal, anicteric sclerae ENMT: external ear and nose normal, oropharynx normal Neck: trachea midline, no thyromegaly Respiratory: + respiratory distress (Minimal distress at rest) Auscultation: + diminished lung sounds; no crackles and no wheezes Cardiovascular: Rate/Rhythm: regular rate and regular rhythm; not tachycardic Heart Sounds: normal S1 and normal S2; no murmur Extremities: + edema (Trace edema bilaterally) Gastrointestinal (Abdomen): Inspection/Auscultation: normal bowel sounds; abdomen not distended Percussion/Palpation: abdomen soft; abdomen nontender Musculoskeletal: No acute arthritis in any joint Neurologic: Alert, awake and oriented x3. No focal sensory and motor deficit appreciated Psychiatric: A+Ox3, euthymic affect Lymphatic: no cervical or axillary lymphadenopathy Results & Data Results & Data ([facility]) Vital Signs (Past 12 Hours) Vital Signs Temp Pulse Pulse Pulse Pulse Pulse Pulse 01/29/22 11:21 36.7 C 01/29/22 11:17 01/29/22 10:01 36.5 C 87 84 01/29/22 08:51 125 H 117 H 125 H 01/29/22 07:22 68 01/29/22 07:18 36.5 C 84 01/29/22 07:03 01/29/22 03:20 36.9 C Pulse Pulse Pulse Resp Resp Resp Resp 01/29/22 11:21 62 18 01/29/22 11:17 75 17 01/29/22 10:01 95 H 18 01/29/22 08:51 105 H 95 H 22 21 22 01/29/22 07:22 01/29/22 07:18 18 01/29/22 07:03 95 H 20 01/29/22 03:20 75 18 Resp Resp BP Pulse Ox Pulse Ox Pulse Ox Pulse Ox 01/29/22 11:21 130/72 95 01/29/22 11:17 95 01/29/22 10:01 160/75 H 92 01/29/22 08:51 20 17 87 L 93 85 L 01/29/22 07:22 01/29/22 07:18 160/75 H 92 01/29/22 07:03 94 01/29/22 03:20 132/77 93 Pulse Ox Pulse Ox 01/29/22 11:21 01/29/22 11:17 01/29/22 10:01 01/29/22 08:51 95 94 01/29/22 07:22 01/29/22 07:18 01/29/22 07:03 01/29/22 03:20 Laboratory Results Short CBC 01/29/22 Range/Units 05:35 WBC 14.31 H (4.8-10.8) K/uL Hgb 13.8 (12.0-16.0) g/dL Hct 40.3 (37-47) % Plt Count 201 (130-400) K/uL BMP 01/29/22 05:35 Sodium 137 Potassium 4.3 D Chloride 105 Carbon Dioxide 27 BUN 20 Creatinine 0.57 L Glucose 148 H Calcium 9.3
--- NOTE | 2022-01-30 08:01 | Discharge Summary ---
Date of Service January 30, 2022 Admission HPI Per Admitting Provider This is a 61 y/o female with a PMH of panlobular emphysema, breast cancer s/p partial mastectomy and chemo (currently in remission), prior CO, HTN, dyslipidemia, chronic pain syndrome, fibromyalgia, prediabetics, and current tobacco use who presents to the ED with hypoxia, being referred from her PCP office. She reports ongoing issues with COPD since last fall, having completed two courses of prednisone and doxycycline in late 2020, course of Biaxin in October. Nagging cough since then but increasing cough for the past three days. Associated chest tightness. Wheezing started two days ago. Has been using nebs without relief so made appt with PCP today - found to be hypoxic so referred to the ED for evaluation. Cough mostly non-productive until the past 24 hours - minimally productive of white-yellow mucus since then. No hemoptysis. May cough to the point of having trouble breathing but no FARIAS or SOB otherwise. Associated wheezing for past two days. Chest feels very tight. No fevers, chills. At baseline uses Breo once daily and albuterol twice a day. No RIVERS, dizziness, palpitations, N/V. Chest only hurts with coughing - no pain with deep breathing. No known sick contacts. Does not follow with pulm for COPD. Current smoker (1 PPD) so would like a nicotine patch while admitted. Admission Exam Per Admitting Provider Constitutional: well developed and well nourished; no acute distress Eyes: + anicteric sclerae Neck: trachea midline Respiratory: no respiratory distress and no labored breathing Auscultation: + wheezes (expiratory throughout); no rales and no rhonchi Cardiovascular: Rate/Rhythm: regular rate and regular rhythm Vessels: posterior tibial pulses present and radial pulses present Extremities: normal capillary refill and + edema (trace LLE) Gastrointestinal (Abdomen): Inspection/Auscultation: normal bowel sounds; abdomen not distended Percussion/Palpation: abdomen soft; abdomen nontender Musculoskeletal: Head/Neck/Chest: normocephalic, head atraumatic and neck supple Skin: no jaundice Neurologic:L moves all extremities; no focal motor deficits and not confused Psychiatric: A+Ox3, euthymic affect Principal Diagnosis COPD exacerbation, hypertension, chronic pain syndrome, fibromyalgia, hyperlipidemia Discharge Exam Sitting at the edge of the bed with minimal shortness of breath at rest Constitutional well developed, well nourished, + ill appearing and + obese Eyes PERRL, conjunctivae normal, anicteric sclerae ENMT external ear and nose normal, oropharynx normal Neck trachea midline, no thyromegaly Respiratory + respiratory distress (Minimal distress at rest) Auscultation: + diminished lung sounds; no crackles and no wheezes Cardiovascular Rate/Rhythm: regular rate and regular rhythm; not tachycardic Heart Sounds: normal S1 and normal S2; no murmur Extremities: + edema (Trace edema bilaterally) Gastrointestinal (Abdomen) Inspection/Auscultation: normal bowel sounds; abdomen not distended Percussion/Palpation: abdomen soft; abdomen nontender Psychiatric A+Ox3, euthymic affect Lymphatic no cervical or axillary lymphadenopathy Discharge Data Allergies Allergy/AdvReac Type Severity Reaction Status Date / Time oxycodone Allergy Mild Verified 01/27/22 10:48 baclofen AdvReac Mild Verified 01/27/22 10:48 CODEINE AdvReac Unknown ITCH Uncoded 01/27/22 10:48 Consultations 01/27/22 12:42 ED Decision to Admit Stat Ordered Studies 01/27/22 10:03 CT angio chest PE protocol Stat Hospital Course (1) COPD exacerbation: -Solumedrol 60 mg IV BID - Doxycycline 100 mg BID - DuoNebs ATC and PRN - Mucinex for chest congestion -Clinically much better today without any wheezing and/or more shortness of breath at rest -We will continue current management -Possible 2 step and discharge tomorrow -Clinically much better today -Has had 2 steps O2 saturation test done and she will require 2 L of oxygen with ambulation -She will be discharged home this afternoon (2) Chronic pain syndrome: Denies any significant pain Continue outpatient pain medications (3) Hypertension: Controlled (4) Dyslipidemia: Continue statin (5) Fibromyalgia: Does not have any significant syndrome (6) Malignant neoplasm of upper-outer quadrant of right breast in female, estrogen receptor negative: In remission - follows with hem/onc every 3 months (7) Tobacco use: Nicotine patch Strongly advised to quit smoking (8) Prediabetes: Last A1c in April 2021 - 6.3 Check A1c with AM labs-6.3 Code Status: Full Code DVT Prophylaxis: Lovenox Will be discharged home this afternoon Total Time Total Time Spent Total Time Spent (In Minutes): 35 minutes Discharge Plan Discharge Items Patient Disposition: Home - Self-Care Reason For Visit: COPD EXACERBATION Discharge Diagnosis: COPD exacerbation, hypertension, chronic pain syndrome, fibromyalgia, hyperlipidemia Condition on Discharge: Good Activity: Resume your previous activity Non-emergency contact: Primary Care Provider Call non-emergency contact if: you have any medication questions and your symptoms worsen Follow-up/Referrals: Zheng Don MD [Primary Care Provider] - (Your doctor's office will call you with an appointment within 7 days) Diet: Heart Healthy Addtl Attending Provider Instructions: Please take precautions to avoid fall Please finish the course of prednisone and antibiotic Take your medications as advised Please keep appointments with your healthcare provider Strongly advised to quit smoking Use oxygen as advised Pending Studies at Discharge: No Stand-Alone Forms: My [employer], Smoking Cessation Medications and DC Order Prescriptions: New doxycycline hyclate 100 mg Capsule 100 mg PO BID 5 Days Qty: 10 RF: 0 nicotine [Nicoderm CQ] 21 mg/24 hr Patch 24 Hour 21 mg transdermal QAM 30 Days Qty: 30 RF: 0 guaifenesin [Mucinex] 600 mg Tablet Extended Release 12hr 600 mg PO Q12 10 Days Qty: 20 RF: 0 prednisone 10 mg tablet 10 mg PO UD Qty: 26 RF: 0 Continued atorvastatin 20 mg tablet 20 mg PO DAILY RF: 0 furosemide [Lasix] 20 mg tablet 20 mg PO DAILY RF: 0 gabapentin 400 mg capsule 400 mg PO BID RF: 0 gabapentin 600 mg tablet 600 mg PO HS RF: 0 hydroxyzine HCl 25 mg tablet 25 mg PO HS RF: 0 meloxicam 15 mg tablet 15 mg PO DAILY RF: 0 metoprolol tartrate 25 mg tablet 12.5 mg PO BID RF: 0 morphine 15 mg tablet 15 mg PO BID PRN (Reason: Pain) RF: 0 fluticasone propionate 50 mcg/actuation spray,suspension 2 spray intranasal DAILY PRN (Reason: Congestion) RF: 0 diclofenac sodium 1 % kit 4 g topical QID PRN (Reason: pain) RF: 0 betamethasone dipropionate 0.05 % cream 1 applic topical BID PRN (Reason: Rash) RF: 0 multivitamin Tablet 1 tab PO DAILY RF: 0 aspirin 325 mg Tablet 325 mg PO DAILY RF: 0 vitamin B complex Tablet 1 tab PO DAILY RF: 0 albuterol sulfate 0.63 mg/3 mL solution for nebulization 0.63 mg inhalation QID PRN (Reason: Shortness Of Breath Or Wheezing) RF: 0 morphine 30 mg tablet extended release 30 mg PO BID RF: 0 albuterol sulfate 90 mcg/actuation HFA aerosol inhaler 2 puff INHALATION Q4H PRN (Reason: Shortness Of Breath Or Wheezing) RF: 0 Breo Ellipta 100-25 mcg/dose blister with device 1 inh INHALATION DAILY RF: 0 Discharge Orders: Discharge Order (Routine); Ordered 01/29/22 Ordered By: Roscoe Hutchins Admission Data Admit Date/Time: 01/27/22 12:09 Attending Provider: Roscoe Hutchins Admit Provider: Corey Sam Primary Care Provider: Zheng Don Other Providers: Corey Sam Other Interventions: Discharge Summary Assessment (RN) Last Done: 01/29/22 10:01
== END 2022-01-29 13:23 | disposition home or self-care (01) | DRG 190 ==
LOC: ED 09:40 → SUATTDRO 12:09 → 2W 12:09
DX: Z79.891 Long term (current) use of opiate analgesic; Z17.1 Estrogen receptor negative status [ER-]; Z88.5 Allergy status to narcotic agent; Z68.35 Body mass index [BMI] 35.0-35.9, adult; E66.9 Obesity, unspecified; Z85.3 Personal history of malignant neoplasm of breast; E78.5 Hyperlipidemia, unspecified; F17.210 Nicotine dependence, cigarettes, uncomplicated; J96.91 Respiratory failure, unspecified with hypoxia; I25.2 Old myocardial infarction; R73.03 Prediabetes; I10 Essential (primary) hypertension; G89.4 Chronic pain syndrome; Z79.82 Long term (current) use of aspirin; J44.1 Chronic obstructive pulmonary disease with (acute) exacerbation; M79.7 Fibromyalgia